=== PATIENT | male | born 1985 | race Caucasian/White ===

== ENCOUNTER 2021-10-25 17:26 | Emergency (ER) | payer OTHER ==
[~2021-10-25] VITALS: Ht 172.7 cm; Wt 78.9 kg
[2021-10-25 17:28] VITALS: BP 153/74
[2021-10-25] MEDS ORDERED: ACETAMINOPHEN EXTRA STRENGTH 500 MG TAB PO ONE (17:55)
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
[2021-10-25] MEDS ORDERED: IBUP-2213 PO (19:10)
[2021-10-25] MEDS ORDERED: IBUPROFEN 600 MG TAB PO ONE (19:10)
[2021-10-25] MEDS ORDERED: ACET-10509 PO (19:10)
--- NOTE | 2021-10-25 19:23 | NUR ---
d/c with VSS. d/c education given. opportunity to ask questions given and answered. rx of tylenol and motrin given.
[2021-10-25 19:24] VITALS: BP 139/66
== END 2021-10-25 19:22 | disposition home or self-care (01) ==
LOC: MED 17:26
DX: S01.81XA Laceration without foreign body of other part of head, initial encounter (principal); R42 Dizziness and giddiness; R11.0 Nausea; V49.9XXA Car occupant (driver) (passenger) injured in unspecified traffic accident, initial encounter; Y93.89 Activity, other specified; Y92.411 Interstate highway as the place of occurrence of the external cause; Y99.8 Other external cause status
CPT/HCPCS: 70450; 99284